=== PATIENT | female | born 1985 | race Two or more races ===

== ENCOUNTER → 2019-10-20 | Outpatient (CLI) | payer OTHER ==
--- NOTE | 2019-10-20 17:26 | RAD ---
OB ultrasound less than 14 weeks 10/20/2019 CLINICAL HISTORY: Uncertain dates. TECHNIQUE: A real-time ultrasound examination of the pelvis was performed. Multiple images were obtained. FINDINGS: There is a single living IUP. The fetus is in a variable position. cardiac and somatic activity is seen. heart rate is 144 beats per minutes. The placenta is developing anteriorly. An irregular hypoechoic area is seen anterior to the developing placenta which measures 5.8 cm in greatest diameter. This is felt to represent an area of subchorionic hemorrhage. The amniotic fluid volume is within normal limits. The maternal cervix is closed. It measures 4.74 cm in length. Neither maternal ovary is visualized. The following measurements were obtained: BPD 2.07 cm 13 weeks 2 days HC 8.07 cm 13 weeks 3 days AC 6.25 cm 13 weeks 0 days FL 1.08 cm 13 weeks 1 day The estimated gestational age by ultrasound is 13 weeks 2 days plus or minus a standard deviation of 10 days. The estimated date of delivery by ultrasound is 04/24/2020. IMPRESSION: Single living IUP with an estimated gestational age by ultrasound of 13 weeks 2 days plus or minus a standard deviation of 10 days. Electronically signed by: Sánchez Girard MD (10/20/2019 5:23 PM) [id number]
== END | disposition home or self-care (01) ==
LOC: EEVIPCON 12:36 → US 12:36
PROVIDERS: ATTEND Obstetrics & Gynecology
DX: O26.841 Uterine size-date discrepancy, first trimester (principal); O34.219 Maternal care for unspecified type scar from previous cesarean delivery; Z3A.13 13 weeks gestation of pregnancy
CPT/HCPCS: 76801

== ENCOUNTER → 2019-12-19 | Outpatient (CLI) | payer OTHER ==
--- NOTE | 2019-12-19 11:51 | RAD ---
Examination: PREG MORE THAN OR EQ TO 14 WKS History: weight estimate. Uterine size discrepancy. Comparison/Correlation: None Findings: OB ultrasound exam was performed. Breech intrauterine gestation is present with heart rate of 144 bpm. Placenta is at the anterior wall. movement and cardiac activity are visualized. 4 chamber heart is present. Three-vessel cord noted with insertion. Fluid in the bladder is seen. Stomach, bilateral kidneys, and brain are visualized. Thoracic and lumbar spine are visualized. Cervical length of 3.5 cm present. Amniotic fluid index of 17.9 cm present. Amniotic fluid volume is unremarkable. Biparietal diameter 4.7 cm corresponds to 20 weeks 2 days. Head circumference of 18.28 cm corresponding to 20 weeks 5 days. Abdominal circumference of 14.790 corresponds to 20 weeks 0 days. Femur length of 3.2 cm corresponding to 20 weeks 1 day. Head circumference to abdominal circumference ratio 1.24 is evident. The estimated weight is 337 g. Impression: Single living intrauterine breech gestation is present with average ultrasound age of 20 weeks 2 days which is 1 weeks 4 days less than clinical age. Ultrasound EDC of 05/05/2020 is evident as compared to clinical EDC of 04/24/2020. Electronically signed by: Pacheco Bedoya MD (12/19/2019 11:49 AM) [id number]
== END | disposition home or self-care (01) ==
LOC: US 09:46
PROVIDERS: ATTEND Obstetrics & Gynecology
DX: O32.1XX0 Maternal care for breech presentation, not applicable or unspecified (principal); Z3A.20 20 weeks gestation of pregnancy
CPT/HCPCS: 76805

== ENCOUNTER → 2020-02-12 | Outpatient (CLI) | payer OTHER ==
--- NOTE | 2020-02-12 15:10 | RAD ---
EXAMINATION: ABDOMEN COMPLETE 02/12/2020 1:00 PM INDICATION: Abdominal pain, gallstones TECHNIQUE: Pagan scale and color Doppler ultrasound images of the abdomen were obtained. COMPARISON: None. FINDINGS: The exam is limited due to shadowing from bowel gas and crowding of abdominal contents due to . Liver: The liver is normal in size measuring 17.2 cm in length. There is somewhat limited evaluation of liver due to shadowing from bowel gas, however the liver appears normal in echogenicity without any obvious focal lesion. Gallbladder: The gallbladder is nondistended and incompletely visualized, limiting evaluation. There are possible tiny calculi versus sludge/debris in the gallbladder lumen. The gallbladder wall is slightly thickened measuring 4.4 mm. Bile ducts: The common bile duct is normal measuring 3 mm. No intrahepatic biliary duct dilatation. Kidneys: The right kidney measures 10.5 x 5.4 x 5.2 cm. The left kidney measures 11.6 x 5.9 x 6.3 cm. Normal cortical thickness and echogenicity bilaterally. No hydronephrosis. Part of the superior left renal pole and inferior right renal pole are not well visualized due to shadowing. Spleen: Spleen is normal measuring 11.9 cm. Other: Abdominal aorta is normal caliber proximally and not visualized in the mid and distal portions. Inferior vena cava is patent at the level of the liver. IMPRESSION: 1. Limited exam due to shadowing from bowel gas and crowding of abdominal contents due to . 2. There is slight wall thickening of the gallbladder, which is nonspecific. There are possible tiny calculi versus sludge/debris in the nondistended gallbladder lumen, however the gallbladder is incompletely visualized, limiting evaluation. Correlate clinically for acute cholecystitis. Electronically signed by: Coral Monroe MD (02/12/2020 3:07 PM) [id number]
== END | disposition home or self-care (01) ==
LOC: US 13:07
PROVIDERS: ATTEND Obstetrics & Gynecology
DX: O00.90 Unspecified ectopic pregnancy without intrauterine pregnancy (principal); K80.20 Calculus of gallbladder without cholecystitis without obstruction
CPT/HCPCS: 76700